=== PATIENT | male | born 1995 | race Hispanic/Latino ===

== ENCOUNTER 2025-05-15 10:42 | Emergency (ER) | payer OTHER ==
[~2025-05-15] VITALS: Ht 170.2 cm; Wt 69.7 kg
[2025-05-15 11:03] VITALS: BP 113/72; TEMP 98.7; O2SAT 99
== END 2025-05-15 12:27 | disposition home or self-care (01) ==
LOC: EDBD 10:42 → M ED 12:18
DX: M62.831 Muscle spasm of calf (principal); V49.50XA Passenger injured in collision with unspecified motor vehicles in traffic accident, initial encounter; Y92.410 Unspecified street and highway as the place of occurrence of the external cause; Y93.89 Activity, other specified; Y99.9 Unspecified external cause status

== ENCOUNTER 2025-06-09 21:58 | Emergency (ER) | payer OTHER ==
[~2025-06-09] VITALS: Ht 170.2 cm; Wt 68.4 kg
[2025-06-09 22:30] LABS: BASO # 0.1 10^3/uL (0.0-0.2); BASO % 0.7 % (0.0-1.0); EOS # 0.1 10^3/uL (0.0-0.5); EOS % 0.7 % (0.0-3.0); LYMPH # 1.4 10^3/uL (1.5-5.0); LYMPH % 19.0 % (24.0-44.0); MONO # 0.4 10^3/uL (0.0-0.8); MONO % 5.9 % (2.0-8.0); NEUTROPHILS # 5.5 10^3/uL (1.5-8.5); NEUTROPHILS % 73.4 % (36.0-66.0); PLATELET COUNT, AUTOMATED 253 10^3/uL (150-450)
[2025-06-09 22:56] LABS: ALT/SGPT 21 U/L (7.0-40); AST/SGOT 14 U/L (<34); CALCIUM LEVEL 9.5 MG/DL (8.5-10.1); CARBON DIOXIDE LEVEL 28 MMOL/L (20-31); CHLORIDE LEVEL 104 MMOL/L (98-107); CREATININE FOR GFR 0.84 MG/DL (0.70-1.30); GLOMERULAR FILTRATION RATE > 90.0 (>60); POTASSIUM SERUM 4.7 MMOL/L (3.5-5.1); SODIUM LEVEL 142 MMOL/L (136-145)
[2025-06-10] MEDS: KETOROLAC 30 MG/ML 1 ML VIAL IV ONE (01:30)
[2025-06-10] MEDS ORDERED: KETOROLAC 30 MG/ML 1 ML VIAL IV ONE (02:00)
[2025-06-10 04:15] VITALS: BP 124/74; TEMP 97.6; O2SAT 97
== END 2025-06-10 04:15 | disposition home or self-care (01) ==
LOC: M ED 21:58
DX: R10.9 Unspecified abdominal pain (principal); K80.00 Calculus of gallbladder with acute cholecystitis without obstruction
CPT/HCPCS: 71045; 76705; 80048; 80076; 82150; 83690; 85025; 96374; 99284; J1885